=== PATIENT | female | born 1995 | race Caucasian/White ===

== ENCOUNTER 2018-07-20 02:51 | Emergency (ER) | payer BC ==
[2018-07-20 03:41] VITALS: BP 116/79; TEMP 98.1; BMI 23.8
--- NOTE | 2018-07-20 03:48 | PDOC ---
History of Present Illness - General Chief Complaint: Headache Stated Complaint: HEADACHE Time Seen by Provider: 07/20/18 03:48 History Source: Patient - History of Present Illness Initial Comments: 07/20/18 05:12 23 year old female with right sided headache, photophobia since 11 pm after suddenly waking up hearing a loud noise outside the house. patient reports history of headache sometimes lasting up to 3 days usually relieved with advil. patient took advil prior to arrival with no relief in pain. + nausea/ vomiting x1. no nuchal rigidity, denies fever/ chills, rash abdominal pain, denies PMHX Past History - Past Medical History Allergies/Adverse Reactions: Allergies Allergy/AdvReac Type Severity Reaction Status Date / Time No Known Allergies Allergy Verified 07/20/18 03:41 - Suicide/Smoking/Psychosocial Hx Smoking History: Never smoked Have you smoked in the past 12 months: No Information on smoking cessation initiated: No Hx Alcohol Use: No Drug/Substance Use Hx: No Review of Systems - Review of Systems Able to Perform ROS?: Yes Is the patient limited Macedonian proficient: No Constitutional: No: Symptoms Reported, See HPI, Chills, Diaphoresis, Fever, Loss of Appetite, Malaise, Night Sweats, Weakness, Weight Stable, Unintentional Wgt. Loss, Unexplained wgt Loss, Other HEENTM: Yes: Other (photophobia) ABD/GI: Yes: Nausea, Vomiting. No: Symptoms Reported, See HPI, Abdominal Distended, Abd. Pain w/ defecation, Blood Streaked Bowels, Constipated, Diarrhea , Difficulty Swallowing, Poor Appetite, Poor Fluid Intake, Rectal Bleeding, Indigestion, Abdominal cramping, Tarry Stools, Other Integumentary: No: Symptoms Reported, See HPI, Bruising, Change in Color, Change in Hair/Nails, Dryness, Erythema, Flushing, Lesions, Lumps, Pallor, Pruritus, Rash, Sweating, Other Neurological: Yes: Headache. No: Symptoms reported, See HPI, Numbness, Paresthesia, Pre-Existing Deficit, Seizure, Tingling, Tremors, Weakness, Unsteady Gait, Ataxia, Dizziness, Other *Physical Exam - Vital Signs Last Vital Signs Temp Pulse Resp BP Pulse Ox 98.1 F 101 H 22 H 116/79 97 07/20/18 02:51 07/20/18 02:51 07/20/18 02:51 07/20/18 02:51 07/20/18 02:51 - Physical Exam General Appearance: Yes: Appropriately Dressed HEENT: positive: Other (PERRLA) Respiratory/Chest: positive: Lungs Clear, Normal Breath Sounds Cardiovascular: positive: Regular Rhythm, Regular Rate Gastrointestinal/Abdominal: positive: Normal Bowel Sounds, Soft Extremity: positive: Normal Capillary Refill, Normal Inspection, Normal Range of Motion Integumentary: positive: Normal Color, Dry, Warm Neurologic: positive: Fully Oriented, Alert, Normal Mood/Affect Moderate Sedation - Procedure Monitoring Vital Signs: Procedure Monitoring Vital Signs Temperature 98.1 F 07/20/18 02:51 Pulse Rate 101 H 07/20/18 02:51 Respiratory Rate 22 H 07/20/18 02:51 Blood Pressure 116/79 07/20/18 02:51 O2 Sat by Pulse Oximetry (%) 97 07/20/18 02:51 ED Treatment Course - LABORATORY CBC & Chemistry Diagram: 07/20/18 03:50 07/20/18 03:50 Progress Note - Progress Note Progress Note: A: headache P: labs serum IVF reglan CT HEAD: negative Medical Decision Making - Medical Decision Making 07/20/18 05:42 patient now feels better. no neck pain 07/20/18 05:55 patient advised of LP to rule out small hemorrhage/ bleeding due to . patient refused spinal tap since she is feeling better. patient said she will follow up with her doctor and neurologist since she has a history of headache. *DC/Admit/Observation/Transfer Diagnosis at time of Disposition: Headache Qualifiers: Headache type: unspecified Headache chronicity pattern: acute headache Intractability: not intractable Qualified Code(s): R51 - Headache - Discharge Dispostion Disposition: HOME Condition at time of disposition: Fair - Referrals Referrals: Guzman Lindsey MD [Staff Physician] - Call tomorrow - Patient Instructions Printed Discharge Instructions: DI for Migraine Additional Instructions: DRINK PLENTY OF FLUIDS. take ibuprofen every 6 hours as needed Additional Instructions: * Please call your personal physician to report your Emergency Department visit and to report your progress, if any. * If there is no improvement in symptoms in 2 days call your physician. * Return to the Emergency Department for any worsening symptoms. - Post Discharge Activity Forms/Work/School Notes: Back to Work
[2018-07-20] MEDS ORDERED: METOCLOPRAMIDE HCL INJECTION 10 MG/2 ML VIAL IVPUSH ONE (03:49)
[2018-07-20] MEDS ORDERED: SODIUM CHLORIDE 0.9% 500 ML INFUS.BAG IV ONE (03:49)
[2018-07-20] MEDS ORDERED: METOCLOPRAMIDE HCL INJECTION 10 MG/2 ML VIAL ONE (04:00)
--- NOTE | 2018-07-20 04:03 | PDOC ---
*Physical Exam - Vital Signs Last Vital Signs Temp Pulse Resp BP Pulse Ox 98.1 F 101 H 22 H 116/79 97 07/20/18 02:51 07/20/18 02:51 07/20/18 02:51 07/20/18 02:51 07/20/18 02:51 ED Treatment Course - LABORATORY CBC & Chemistry Diagram: 07/20/18 03:50 07/20/18 03:50 Medical Decision Making - Medical Decision Making 07/20/18 04:02 Patient seen by the advanced practice provider under my direct supervision. Ancillary testing reviewed as necessary. I agree with plan as outlined by the advanced practice provider. *DC/Admit/Observation/Transfer Diagnosis at time of Disposition: Headache - Discharge Dispostion Disposition: HOME Condition at time of disposition: Fair - Referrals Referrals: Guzman Lindsey MD [Staff Physician] - Call tomorrow - Patient Instructions Printed Discharge Instructions: DI for Migraine Additional Instructions: DRINK PLENTY OF FLUIDS. take ibuprofen every 6 hours as needed Additional Instructions: * Please call your personal physician to report your Emergency Department visit and to report your progress, if any. * If there is no improvement in symptoms in 2 days call your physician. * Return to the Emergency Department for any worsening symptoms. - Post Discharge Activity Forms/Work/School Notes: Back to Work
[2018-07-20 04:27] LABS: BASO % 0.8 % (0-2.0); EOS % 1.1 % (0-4.5); HEMATOCRIT 40.4 % (32.4-45.2); HEMOGLOBIN 13.7 GM/dL (10.7-15.3); LYMPH % 27.6 % (8-40); MCH 29.6 pg (25.7-33.7); MEAN CELL VOLUME 87.2 fl (80-96); MEAN PLT VOLUME 8.8 fl (7.5-11.1); MONO % 7.1 % (3.8-10.2); NEUT % 63.4 % (42.8-82.8); PLATELET COUNT 287 K/MM3 (134-434); RBC 4.63 M/mm3 (3.60-5.2); RDW 13.2 % (11.6-15.6); WHITE BLOOD COUNT 8.9 K/mm3 (4.0-10.0)
[2018-07-20 04:40] LABS: ALBUMIN 4.3 g/dl (3.4-5.0); ALK PHOS 74 U/L (45-117); ANION GAP 8 MMOL/L (8-16); BILIRUBIN,TOTAL 0.4 mg/dL (0.2-1); BLOOD UREA NITROGEN 15 mg/dL (7-18); CALCIUM 9.3 mg/dL (8.5-10.1); CHLORIDE 104 mmol/L (98-107); CO2 29 mmol/L (21-32); CREATININE 0.6 mg/dL (0.55-1.3); GLUCOSE,RANDOM 109 mg/dL (74-106); POTASSIUM 3.9 mmol/L (3.5-5.1); SGOT/AST 5 U/L (15-37); SGPT/ALT 23 U/L (13-61); SODIUM 141 mmol/L (136-145)
[2018-07-20] MEDS ORDERED: KETOROLAC TROMETHAMINE 30 MG/1 ML VIAL IVPUSH ONE (05:32)
[2018-07-20] MEDS ORDERED: KETOROLAC TROMETHAMINE 30 MG/1 ML VIAL ONE (05:47)
[2018-07-20 05:55] VITALS: PULSE 82
== END 2018-07-20 06:09 | disposition home or self-care (01) ==
LOC: JER 02:51
PROC: 3E0333Z Introduction of Anti-inflammatory into Peripheral Vein, Percutaneous Approach (ICD-10-PCS; principal; 2018-07-20)
PROC: 3E033GC Introduction of Other Therapeutic Substance into Peripheral Vein, Percutaneous Approach (ICD-10-PCS; 2018-07-20)
DX: R51 Headache (principal)
CPT/HCPCS: 36415; 70450-TC; 80053; 84703; 85025; 99283-25